=== PATIENT | female | born 1950 | race Caucasian/White ===

== ENCOUNTER → 2016-06-06 | Outpatient (CLI) | payer MEDICARE ==
[2016-06-06 09:22] LABS: BUN 10 mg/dL (7-18)
[2016-06-06 09:23] LABS: GFR (ESTIMATED) 124 ML/MIN (59-)
--- NOTE | 2016-06-06 19:57 | RADIOLOGY REPORT PS360 ---
ABD ACUTE(MUL VIEWS) ORDERING PHYSICIAN : CORBIN CABA MD PATIENT AGE: 65 years GENDER: Female INDICATION: CHRONIC CONSTIPATION,MULTIPLE SCLEROSIS Chronic constipation but multiple sclerosis./Diarrhea. Gas 5 years. IBS. TECHNIQUE: Upright chest with flat and upright views of abdomen COMPARISON: Upright chest 03/19/2016 FINDINGS Stable chest since 2016 with nothing definitely acute today. Slight coarsening markings bilaterally most evident towards the lung bases. Slight blunting left CP angle reflect some mild chronic pleural changes. No free air beneath the diaphragm. Flat and upright images of the abdomen show prominent stool throughout the right colon continuing through the hepatic flexure. Generous stool at the transverse colon and splenic flexure. Only minimal stool and gas with fairly empty descending colon and rectosigmoid. Minimal small bowel gas right abdomen. No bowel obstruction. No free air. No organomegaly. Small vascular calcifications at the pelvis. Small calcifications just to the right of L5 are most likely vascular. No discrete renal calculi evident on plain film. IMPRESSION: ...... 1. No bowel dilatation or obstruction 2. Increase stool reflecting Constipation at the right colon/hepatic flexure. However left colon is fairly empty. Nonspecific bowel gas pattern.
--- NOTE | 2016-06-09 11:12 | RADIOLOGY REPORT PS360 ---
MRI-BRAIN W/WO ORDERING PHYSICIAN : CORBIN CABA MD PATIENT AGE: 65 years GENDER: Female INDICATION: GAIT DISORDER, NECK PAIN, MS DISI blurred vision unsteady gait follow-up MS TECHNIQUE: Precontrast Multiplanar FLAIR, T1, T2 weighted images along with axial diffusion/ADC imaging performed on 1.5 T. Siemens, MRI. Postcontrast imaging [id number] mLmL ProHance T1-weighted images axial & coronal plane performed COMPARISON: MRI brain June 2011 FINDINGS Numerous high signal foci are again seen at throughout the centrum semiovale & most pronounced the periventricular deep white matter at cerebral hemispheres. These would be compatible with submitted history of MS- Although can be difficult to discriminator from deep white matter lesions small vessel ischemic foci, particularly in this age patient. However I would notesome of have Gregorio fingers like orientation of radiating to the periventricular white matter which tends to support MS... Majority of these white matter high signal lesions were evident on previous 2011, but there has been overall slight progression of size and increased number of deep white matter lesions cerebral hemispheres bilateral since that time.-For example a lesion of the mid body left lateral ventricle previously measured up to 8.5 mm and now measures up to nearly 11 mm.. At the right lateral hemisphere a high signal lesion lateral to the mid body right lateral ventricle, measured 11.4 mm now measuring 13.5 mm.. There are some new small high signal deep white matter lesions seen particularly evident on right but also evident on left cerebral hemisphere. A rim of high signal surrounding the lateral ventricles is again seen is slightly more evident and may reflect aging changes of the along with white matter changes. This confluent periventricular increased signal is particularly evident superior to the atria of the lateral ventricles At the posterior fossa there is a small focus of increased signal just to the right of the fourth ventricle which is new measuring 4 mm size.. (Axial image 7 sagittal slice 11). This focus Seems to have slightly increased diffusion signal but also with subtle increased ADC signal, thus favor MS plaque rather than small recent ischemic gliotic focus. Cannot exclude a more remote small vessel ischemic focus Otherwise dina appears satisfactory. Upper normal signal is seen at the upper cervical spine. This could merely reflect pulsation artifact.,, But should be kept in mind. CP angles appear clear. Mastoid air cells and anatomy at posterior fossa unremarkable. No mass lesions. Postcontrast study showed no abnormal areas of enhancement notably the deep white matter lesions appear to show enhancement. Diffusion images show no acute infarct or lesion Orbits unremarkable. No lesions involving optic nerve. Globes satisfactory. Paranasal sinuses clear.. ... IMPRESSION 1. Numerous high signal foci are again seen throughout the white matter of the cerebral hemispheres compatible with MS diagnosis.. Majority of these were present previously in 2012,, but there has been slight increased number & size of the white matter lesions since 2012. Note scattered new lesions bilaterally as well as enlargement of previous existing lesions vs 2012 MRI Majority of these deep white matter lesions would be compatible with MS, although it is difficult to exclude associated small vessel ischemic foci and findings intermingled particularly in this age patient 2. Small new nearly 4 mm high signal focus to the right of the fourth ventricle involving white matter of the right cerebellar hemisphere.. Favor more likely small new MS plaque, although difficult to exclude likely small vessel ischemic focus alternatively 3. No abnormal areas of enhancement . No mass lesion. No mass effect 4. Added note Question subtle/area of Upper normal signal on sagittal FLAIR image at the upper cervical spine. More likely pulsation artifact but may benefit from follow-up to exclude early MS involvement if relevant symptoms
== END ==
LOC: RAD 08:56
PROVIDERS: Specialist
DX: G35 Multiple sclerosis (principal); R26.9 Unspecified abnormalities of gait and mobility; M54.2 Cervicalgia; R20.2 Paresthesia of skin; K59.09 Other constipation; Z86.69 Personal history of other diseases of the nervous system and sense organs
CPT/HCPCS: A9576

== ENCOUNTER 2017-01-30 11:53 | Day surgery (SDC) | payer MEDICARE ==
[~2017-01-30] VITALS: Ht 165.1 cm; Wt 68.0 kg
--- NOTE | 2017-01-30 12:59 | Operative Note ---
Upper GI Endoscopy Procedure date: 01/30/17 Date of : 50 Procedure:Upper GI Endoscopy Esophagogastroduodenoscopy with cold biopsies and TTS balloon dilation Indications: Mrs. Velázquez is a 66-year-old female with epigastric abdominal pain that radiates into the back. The patient has moderate bloating, nausea and belching. The pain can be excruciating. The patient also has chronic constipation. She takes Linzess and Dulcolax. She states that the combined MiraLAX plus Metamucil did not seem to improve her symptoms. She does have some heartburn and early satiety. She has intermittent dysphagia. She reports no melena or weight loss. She did have an EGD at [facility] in [facility] several years ago by Dr. Cantu. The patient does have a history of multiple sclerosis. She is on multiple medications. She also tried Trulance. Performing Provider: Rafi Dent MD Referring Provider: Wil Garcia M.D. Sedation: MAC sedation Procedure: Prior to the procedure, a history and physical exam was performed, and patients medications and allergies were reviewed. The risks and benefits of the procedure and the sedation options and risks were discussed with the patient. All questions were answered and informed consent was obtained. The patient was brought to the procedure room. Patient identification and proposed procedure were verified by the physician and the nurse. The patient was placed in a left lateral decubitus position and the scope was passed under direct vision. Throughout the procedure, the patient's blood pressure, pulse, and oxygen saturations were monitored continuously. The endoscope was introduced through the mouth, and advanced to the second part of duodenum. The upper GI endoscopy was accomplished without difficulty. The patient tolerated the procedure well. Findings: The scope was passed directly into the upper esophagus and advanced to the third portion of the duodenum. The post bulbar duodenum and duodenal bulb were normal with normal mucosa and conniventes. The scope was withdrawn through a normal duodenal bulb and pylorus into the stomach. There was moderate linear erythema of the antrum and body with bowel reflux with evidence of linear reactive gastritis. The remainder of the antrum, body and fundus of the stomach were grossly normal. Upon retroflexion there was a small 1-2 cm hiatal hernia. 2 biopsies were taken in the antrum and along the lesser curvature for histology. The scope was then withdrawn into the esophagus. There was a distal Schatzki's ring which was dilated to 20 mm. There were tertiary contractions and evidence of mild to moderate esophageal dysmotility. The entire esophagus was dilated to 20 mm with a TTS hydrostatic balloon. The remainder of the esophageal mucosa was normal. Immediate complications: None EBL (ml): 0 Impression: 1. Moderate bile reflux with moderate linear reactive gastritis and mild pylorospasm 2. 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 I would consider additional therapy for visceral sensitivity and possibly promotility therapy. I would also reinitiate a good fiber bowel regimen. I will follow up the biopsies. at [id number]
[2017-01-30 14:11] VITALS: BP 153/74
== END 2017-01-30 14:00 | disposition home or self-care (01) ==
LOC: SDC 11:53
PROVIDERS: Internal Medicine Gastroenterology
PROC: 0DB78ZX Excision of Stomach, Pylorus, Via Natural or Artificial Opening Endoscopic, Diagnostic (ICD-10-PCS; 2017-01-30)
PROC: 0D758ZZ Dilation of Esophagus, Via Natural or Artificial Opening Endoscopic (ICD-10-PCS; 2017-01-30)
PROC: 0DB68ZX Excision of Stomach, Via Natural or Artificial Opening Endoscopic, Diagnostic (ICD-10-PCS; principal; 2017-01-30 12:30)
DX: R10.13 Epigastric pain (principal); K59.09 Other constipation; R13.10 Dysphagia, unspecified; G35 Multiple sclerosis; Z79.899 Other long term (current) drug therapy; K29.60 Other gastritis without bleeding; K44.9 Diaphragmatic hernia without obstruction or gangrene; K22.2 Esophageal obstruction; K22.4 Dyskinesia of esophagus; K21.9 Gastro-esophageal reflux disease without esophagitis; K31.3 Pylorospasm, not elsewhere classified
CPT/HCPCS: C1726

== ENCOUNTER → 2017-04-03 | Outpatient (CLI) | payer MEDICARE ==
[2017-04-03 09:05] LABS: BUN 15 mg/dL (7-18)
[2017-04-03 09:06] LABS: GFR (ESTIMATED) 100 ML/MIN (59-)
--- NOTE | 2017-04-04 13:10 | RADIOLOGY REPORT PS360 ---
MRI-BRAIN W/WO Ordering Physician: CARLA LEWIS Patient Age: 66 years: Female HISTORY: MS symptoms worse right side TECHNIQUE: : Precontrast Multiplanar FLAIR, T1, T2 weighted images along with axial diffusion/ADC imaging performed on 1.5 T. Siemens, MRI. Postcontrast imaging [id number] ProHance T1-weighted images axial & coronal plane performed COMPARISON :Previous MRI with & without contrast from 06/06/2016. FINDINGS Numerous high signal lesions compatible with the patient's history of MS is seen throughout the deep white matter of the cerebral hemispheres , , Involving centrum semiovale bilaterally. The plaque appears similar in number. Largest plaque on right measuring 12 mm and located lateral to the mid body right lateral ventricle. (Axial flair image 17) On the left the largest left plaque 10 mm size extending superior from the posterior body left lateral ventricle. (Coronal FLAIR image 12, and axial 19] If anything there may be slight improvement in view of the plaques is some these plaques are not is bright pronounced but this may be in part due to technique they've not progressed. No enhancing plaques or lesions are seen postcontrast. . Small high signal foci in also seen at the right cerebellum best seen on sagittal image 13. Sagittal images also nicely demonstrate Dawsonfinger like appearance of lesions extending through the hogue radiata. These appear similar and stable since prior exam appearing the sagittal T2. The cranial cervical junction appears normal. Ventricles appear normal. Sella and pituitary appear satisfactory. The paranasal sinuses are clear orbits unremarkable optic nerve with no evident lesion on these studies. IMPRESSION: 1. . No significant new lesions... Overall Stable MS pattern by MR Numerous high signal foci throughout the centrum semiovale regions bilaterally again evident with no significant change since prior study. (If anything some of pre-existing lesions are slightly less bright, less pronounced today but this may be reflection of slight variations in FLAIR parameters/ technique.... No progression of findings evident) 2. Also note small subtle tiny lesions at the right cerebellum which appear stable on T2 weighted images, but very slightly less evident with today's FLAIR images.
--- NOTE | 2017-04-04 14:55 | RADIOLOGY REPORT PS360 ---
MRI-C-SPINE W/WO, MRI-3D RENDERING/MYELOGRAM Ordering Physician: CARLA LEWIS Patient Age: 66 years: Female HISTORY: MShistory of MS with symptoms worse on right side. TECHNIQUE: Precontrast Sagittal STIR, T1, T2, axial T1 and T2. On 1.5T Siemens wide bore MRI. 3-D MR myelogram image set obtained & performed on MRI workstation. Additional sagittal thin section T2 weighted dataset obtained from this latter acquisition as well (---76 CPT) Following 14 mL ProHance sagittal and axial T1 imaging performed COMPARISON : Previous study from June FINDINGS No enhancing lesions. . No definitive high signal foci within the cervical cord to from MS involvement. However I would note that there is some very slight inhomogeneous appearance of the cervical cord on the STIR images but no focal high signal T2 features or lesions evident on reviewing other imaging sequences. Cranial cervical junction appears normal. Vertebral bodies appear intact. Degenerative disc changes most evident developing at C4/5 and C5/6 C2/3 and C3/4 disc intact. Unremarkable. C4/5 mild central disc protrusion just abuts the cervical cord at midline. C5-C6.. Disc space narrowing. Degenerative disc changes & cervical spondylosis. Diffuse Posterior disc/osteophyte features most evident right and left paracentral region. -Features diffusely indenting thecal sac & just abuts anterior cervical cord, at right paracentral> left.. Mild encroachment into the right foramen more so than left. Encroachment bilateral.. Suggestion of mild facet arthropathy, hypertrophy. Minor posterior element prominence. Appearance approaching borderline spinal stenosis at this level 10 mm AP diameter thecal sac. C6/C7 disc intact. . C7/T1 disc intact. T1/T2 T2/T3 disc intact. 3-D MRI myelogram image set demonstrates indentation upon the thecal sac and narrowing the spinal canal most evident at C5-C6 slight more evident the right left. Bilateral foraminal encroachment. IMPRESSION 1. Regarding MS no discrete high signal focus lesion evident within cervical cord... Only note subtle inhomogeneous appearance,cervical cord posterior toC5-C6 level as seen sensitive sagittal STIR images-May reflect pulsation artifact as I see no discrete abnormalities signal here on the other sequences.. 2. Mild degenerative disc changes & spondylosis cervical spine.:. C5-C6. Disc space narrowing. Mild diffuse disc/osteophyte posteriorly with most evident at right paracentral> left paracentral region. Moderate bilateral foraminal encroachment right greater than left. C5-C6. Minimal spondylosis, with mild Central disc protrusion..
== END ==
LOC: RAD 08:39
PROVIDERS: Psychiatry & Neurology Sleep Medicine
DX: G35 Multiple sclerosis (principal)
CPT/HCPCS: A9576